=== PATIENT | female | born 1965 | race Two or more races ===

== ENCOUNTER 2024-08-21 23:46 | Inpatient (IN) | payer MEDICAID, OTHER ==
[~2024-08-21] VITALS: Ht 149.9 cm; Wt 76.8 kg
[2024-08-22] VITALS (18 sets, daily range): BP systolic 95–107; BP diastolic 44–58; PULSE 62–116; RESP 18–30; TEMP 98.5–99.1; O2SAT 92–97
[2024-08-22] MEDS: AZITHROMYCIN 250 MG TAB PO ONE (00:25)
[2024-08-22] MEDS: ACETAMINOPHEN 325 MG TAB PO ONE (00:25)
[2024-08-22] MEDS: methylPREDNISolone SOD SUCC 125 MG/2 ML VL IV ONE (00:27)
[2024-08-22 00:35] LABS: Basophils # (auto) 0 10 ^3/uL (0-0.2); Basophils % (auto) 0.2 % (0.0-2.0); Eosinophils # (auto) 0.1 10 ^3/uL (0-0.8); Eosinophils % (auto) 0.5 % (0.0-7.0); Hematocrit 41.7 % (36.0-46.0); Hemoglobin 14.1 g/dL (12.2-16.2); Lymphocytes # (auto) 0.8 10 ^3/uL (0.4-5.4); Lymphocytes % (auto) 6.1 % (10.0-50.0); Mean Corpuscular Hemoglobin 31.2 pg (28.0-32.0); Mean Corpuscular Hgb Conc. 33.8 g/dL (32.0-36.0); Mean Corpuscular Volume 92.3 fL (80.0-100.0); Monocytes # (auto) 0.4 10 ^3/uL (0-1.3); Monocytes % (auto) 2.9 % (0.0-12.0); Neutrophils # (auto) 11.6 10 ^3/uL (1.6-8.6); Neutrophils % (auto) 90.3 % (37.0-80.0); Platelet Count (auto) 211 10^3/uL (140-450); Red Blood Cells 4.52 10^6/uL (4.0-5.20); Red Cell Distribution Width 14.5 % (11.8-14.3); White Blood Cell 12.8 10^3/uL (4.4-10.8)
[2024-08-22] MEDS: IPRATROPIUM BROM 0.5 MG/2.5ML INH SOL NEB ONE (00:45)
[2024-08-22] MEDS: ALBUTEROL SULF 2.5 MG/0.5ML(0.5%) NEB SOLN NEB ONE (00:46)
[2024-08-22 01:03] LABS: Chloride 105 mmol/L (98-107); Potassium 3.4 mmol/L (3.5-5.1); Sodium 136 mmol/L (136-145)
[2024-08-22 01:04] LABS: Anion Gap 6 (5-15); Calcium 9.6 mg/dL (8.7-10.4); Carbon Dioxide 25 mmol/L (20-31)
[2024-08-22 01:09] LABS: BUN/Creatinine Ratio 8.8 (10.0-20.0); Blood Urea Nitrogen 7 mg/dL (9-23); Glucose 156 mg/dL (74-106)
[2024-08-22 01:13] LABS: COVID19 ANTIGEN SOFIA FIA NEGATIVE (NEGATIVE); Rapid Influenza A Negative (Negative); Rapid Influenza B Negative (Negative)
[2024-08-22] MEDS: KETOROLAC TROMETH 30 MG/ML 1ML VIAL IV ONE (02:12)
[2024-08-22] MEDS: cefTRIAXone 1GM/50ML D5W 50 ML IV ONE (02:13)
[2024-08-22] MEDS: METOCLOPRAMIDE HCL 5MG/ml INJ 2ml VIAL IV ONE (02:13)
[2024-08-22] MEDS ORDERED: DOCUSATE SOD 100 MG CAP PO PRN (04:15)
[2024-08-22] MEDS: SODIUM CHLORIDE 0.9% 1,000 ML IV SCH (04:36)
[2024-08-22] MEDS: POTASSIUM CHL 20 Meq TABLET PO ONE (04:36)
[2024-08-22 04:46] LABS: Basophils # (auto) 0 10 ^3/uL (0-0.2); Basophils % (auto) 0.1 % (0.0-2.0); Eosinophils # (auto) 0 10 ^3/uL (0-0.8); Hematocrit 39.6 % (36.0-46.0); Hemoglobin 13.5 g/dL (12.2-16.2); Lymphocytes # (auto) 0.1 10 ^3/uL (0.4-5.4); Lymphocytes % (auto) 1.3 % (10.0-50.0); Mean Corpuscular Hemoglobin 30.9 pg (28.0-32.0); Mean Corpuscular Hgb Conc. 34.2 g/dL (32.0-36.0); Mean Corpuscular Volume 90.3 fL (80.0-100.0); Monocytes # (auto) 0.2 10 ^3/uL (0-1.3); Monocytes % (auto) 1.5 % (0.0-12.0); Neutrophils # (auto) 10.9 10 ^3/uL (1.6-8.6); Neutrophils % (auto) 97.1 % (37.0-80.0); Nucleated Red Blood Cells % 0.2 %; Platelet Count (auto) 206 10^3/uL (140-450); Red Blood Cells 4.38 10^6/uL (4.0-5.20); White Blood Cell 11.3 10^3/uL (4.4-10.8)
[2024-08-22 04:59] LABS: Urine Bacteria None Seen /hpf (None Seen)
[2024-08-22 05:02] LABS: Alanine Aminotransferase 12 U/L (7-40); Albumin 4.6 g/dL (3.2-4.8); Alkaline Phosphatase 69 U/L (46-116); Anion Gap 7 (5-15); Aspartate Aminotransferase 14 U/L (13-40); BUN/Creatinine Ratio 9.4 (10.0-20.0); Bilirubin, Total 0.5 mg/dL (0.2-1.0); Blood Urea Nitrogen 8 mg/dL (9-23); Calcium 9.3 mg/dL (8.7-10.4); Carbon Dioxide 23 mmol/L (20-31); Chloride 105 mmol/L (98-107); Glucose 229 mg/dL (74-106); Potassium 3.4 mmol/L (3.5-5.1); Sodium 135 mmol/L (136-145)
[2024-08-22 05:06] LABS: Urine Blood TRACE /uL (Negative); Urine Clarity Clear (Clear); Urine Color Yellow (Yellow); Urine Mucus FEW (None Seen); Urine Protein, UAD TRACE (Negative); Urine Specific Gravity 1.022 (1.001-1.035); Urine Urobilinogen Normal (Negative); Urine WBC 1 /hpf (0 - 5); Urine pH 5.5 (5.0-9.0)
[2024-08-22] MEDS: methylPREDNISolone SOD SUCC 40 MG/ML VL IV SCH (05:42)
[2024-08-22] MEDS ORDERED: MORPHINE SULFATE INJ 2 MG/ml SYRG IV PRN (05:45)
[2024-08-22] MEDS ORDERED: NITROGLYCERIN 0.4 MG SL TAB SL PRN (05:45)
[2024-08-22] MEDS: ALBUTEROL SULF 2.5 MG/0.5ML(0.5%) NEB SOLN NEB PRN (07:30)
[2024-08-22] MEDS: IPRATROPIUM BROM 0.5 MG/2.5ML INH SOL NEB PRN (07:31)
[2024-08-22] MEDS: FAMOTIDINE (10MG/ML) 2ML VL IV SCH (09:57)
[2024-08-22] MEDS: IPRATROPIUM BROM 0.5 MG/2.5ML INH SOL NEB SCH (12:00)
[2024-08-22] MEDS: ALBUTEROL SULF 2.5 MG/0.5ML(0.5%) NEB SOLN NEB SCH (12:00)
[2024-08-22] MEDS: IOHEXOL 350 MG/ML 100ML IJ ONE (14:21)
[2024-08-22] MEDS: methylPREDNISolone SOD SUCC 40 MG/ML VL ONE (14:22)
[2024-08-22] MEDS: ONDANSETRON HCL 4 MG/2 ML VIAL IV PRN (15:08)
[2024-08-22] MEDS: HYDROcodone-ACET 5/325MG TAB PO PRN (15:08)
[2024-08-23] VITALS (18 sets, daily range): BP systolic 87–132; BP diastolic 42–98; PULSE 55–104; RESP 16–20; TEMP 98–98.9; O2SAT 93–100
[2024-08-23] MEDS: ACETAMINOPHEN 325 MG TAB PO PRN (00:01)
[2024-08-23 06:24] LABS: Basophils # (auto) 0 10 ^3/uL (0-0.2); Eosinophils # (auto) 0 10 ^3/uL (0-0.8); Hematocrit 38.5 % (36.0-46.0); Hemoglobin 12.9 g/dL (12.2-16.2); Lymphocytes # (auto) 0.3 10 ^3/uL (0.4-5.4); Mean Corpuscular Hemoglobin 30.7 pg (28.0-32.0); Mean Corpuscular Hgb Conc. 33.4 g/dL (32.0-36.0); Mean Corpuscular Volume 91.9 fL (80.0-100.0); Monocytes # (auto) 0.5 10 ^3/uL (0-1.3); Monocytes % (auto) 2.7 % (0.0-12.0); Neutrophils # (auto) 16.3 10 ^3/uL (1.6-8.6); Neutrophils % (auto) 95.3 % (37.0-80.0); Nucleated Red Blood Cells % 0.1 %; Platelet Count (auto) 209 10^3/uL (140-450); Red Blood Cells 4.19 10^6/uL (4.0-5.20); Red Cell Distribution Width 14.3 % (11.8-14.3); White Blood Cell 17.1 10^3/uL (4.4-10.8)
[2024-08-23 07:07] LABS: Alanine Aminotransferase 14 U/L (7-40); Alkaline Phosphatase 63 U/L (46-116); Anion Gap 7 (5-15); BUN/Creatinine Ratio 14.9 (10.0-20.0); Blood Urea Nitrogen 13 mg/dL (9-23); Calcium 9.7 mg/dL (8.7-10.4); Carbon Dioxide 25 mmol/L (20-31); Chloride 107 mmol/L (98-107); Glucose 221 mg/dL (74-106); Potassium 4.5 mmol/L (3.5-5.1); Sodium 139 mmol/L (136-145)
[2024-08-23 07:08] LABS: Albumin 4.1 g/dL (3.2-4.8); Aspartate Aminotransferase 21 U/L (13-40); Total Protein 6.5 g/dL (5.7-8.2)
[2024-08-23 07:12] LABS: Bilirubin, Total 0.2 mg/dL (0.2-1.0)
[2024-08-23] MEDS: cefTRIAXone 1GM/50ML D5W 50 ML IV SCH (09:23)
[2024-08-24] VITALS (12 sets, daily range): BP systolic 93–134; BP diastolic 47–66; PULSE 59–97; RESP 16–20; TEMP 97.5–98.5; O2SAT 92–100
[2024-08-24] MEDS ORDERED: METH4PAK PO (10:10)
[2024-08-24] MEDS ORDERED: ALBUAER3 IN (10:10)
[2024-08-24] MEDS ORDERED: DOXY-346 PO (10:10)
[2024-08-24] MEDS: DOXYCYCLINE 100MG/250ML 250 ML IV SCH (10:32)
== END 2024-08-24 13:20 | disposition home or self-care (01) | DRG 720 ==
LOC: EDBD 23:46 → ER 23:46 → TELE 08-22 05:34 → TELE-CENTR 08-22 16:53
PROVIDERS: ADMIT Internal Medicine; ATTEND Family Medicine
DX: A41.9 Sepsis, unspecified organism (principal); J96.01 Acute respiratory failure with hypoxia; J18.9 Pneumonia, unspecified organism; J44.0 Chronic obstructive pulmonary disease with (acute) lower respiratory infection; J44.1 Chronic obstructive pulmonary disease with (acute) exacerbation; J45.901 Unspecified asthma with (acute) exacerbation; Z20.822 Contact with and (suspected) exposure to COVID-19; E87.6 Hypokalemia; B34.9 Viral infection, unspecified; Z79.899 Other long term (current) drug therapy
CPT/HCPCS: 36415; 71045; 71275; 80048; 80053; 81001; 83880; 84484; 85025; 87426; 87804; 93005; 94640; 96365; 96375; 99291; G0378; J1885; J2405; J3490